=== PATIENT | male | born 1995 | race Native Hawaiian/Other Pacific Islander ===

== ENCOUNTER 2020-05-15 23:01 | Emergency (ER) | payer SELFPAY ==
[~2020-05-15] VITALS: Ht 180.3 cm; Wt 93.9 kg
[2020-05-16 00:33] VITALS: BP 134/82
== END 2020-05-16 01:21 | disposition home or self-care (01) ==
LOC: ER 23:01
DX: S62.325A Displaced fracture of shaft of fourth metacarpal bone, left hand, initial encounter for closed fracture (principal); W55.42XA Struck by pig, initial encounter; Y93.89 Activity, other specified; Y92.79 Other farm location as the place of occurrence of the external cause; Y99.8 Other external cause status
CPT/HCPCS: 29125; 73130